=== PATIENT | female | born 1960 | race Caucasian/White ===

== ENCOUNTER 2018-02-04 17:24 | Emergency (ER) | payer OTHER ==
[~2018-02-04] VITALS: Ht 149.9 cm; Wt 41.7 kg
--- NOTE | 2018-02-04 17:49 | PHYS DOC ---
Past Medical History Past Medical History: Diabetes-Type II, Renal Failure Adult General Chief Complaint Chief Complaint: NOSEBLEED HPI HPI Patient is a 58 year old female with history of hypertension, diabetes type 2, end-stage renal disease on home hemodialysis five days ago last dialyzed 2 days ago who presents today complaining of nose bleeding since 10 am. Patient states she typically injects 2000U of heparin post dialysis. Patient denies any trauma. Denies any headache. Review of Systems Review of Systems Constitutional: Denies fever or chills [] Eyes: Denies change in visual acuity, redness, or eye pain [] HENT: Reports nose bleeding. Denies nasal congestion or sore throat [] Respiratory: Denies cough or shortness of breath [] Cardiovascular: No additional information not addressed in HPI [] GI: Denies abdominal pain, nausea, vomiting, bloody stools or diarrhea [] : Denies dysuria or hematuria [] Musculoskeletal: Denies back pain or joint pain [] Integument: Denies rash or skin lesions [] Neurologic: Denies headache, focal weakness or sensory changes [] All other systems were reviewed and found to be within normal limits, except as documented in this note. Current Medications Current Medications Current Medications Medications (Trade) Dose Ordered Sig/Arnel Start Time Stop Time Status Last Admin Dose Admin Oxymetazoline HCl (Afrin) 2 spray 1X ONCE 02/04/18 18:00 02/04/18 18:06 DC 02/04/18 18:22 2 SPRAY Allergies Allergies Allergies Coded Allergies Type Severity Reaction Last Updated Verified ELIZABETH Inhibitors Allergy Mild Unknown 02/04/18 Yes Physical Exam Physical Exam Constitutional: Well developed, well nourished, no acute distress, non-toxic appearance. [] HENT: Normocephalic, atraumatic, bilateral external ears normal, oropharynx moist, no oral exudates, Right nasal cavity with trace amount of bright red blood, this appears to be a posterior nosebleed, left nasal cavity with no active bleeding. Eyes: PERRLA, EOMI, conjunctiva normal, no discharge. [] Neck: Normal range of motion, no tenderness, supple, no stridor. [] Cardiovascular:Heart rate regular rhythm, no murmur [] Lungs & Thorax: Bilateral breath sounds clear to auscultation [] Abdomen: Bowel sounds normal, soft, no tenderness, no masses, no pulsatile masses. [] Skin: Warm, dry, no erythema, no rash. [] Back: No tenderness, no CVA tenderness. [] Extremities: No tenderness, no cyanosis, no clubbing, ROM intact, no edema. [] Neurologic: Alert and oriented X 3, normal motor function, normal sensory function, no focal deficits noted. [] Psychologic: Affect normal, judgement normal, mood normal. [] Current Patient Data Vital Signs Vital Signs Date Time Temp Pulse Resp B/P (MAP) Pulse Ox O2 Delivery O2 Flow Rate FiO2 02/04/18 19:00 93 18 149/72 (97) 94 Room Air 02/04/18 17:44 98.1 98.1 Lab Values Laboratory Tests Test 02/04/18 19:00 White Blood Count 13.8 x10^3/uL (4.0-11.0) H Red Blood Count 2.75 x10^6/uL (3.50-5.40) L Hemoglobin 9.2 g/dL (12.0-15.5) L Hematocrit 27.0 % (36.0-47.0) L Mean Corpuscular Volume 98 fL (79-100) Mean Corpuscular Hemoglobin 34 pg (25-35) Mean Corpuscular Hemoglobin Concent 34 g/dL (31-37) Red Cell Distribution Width 13.4 % (11.5-14.5) Platelet Count 371 x10^3/uL (140-400) Neutrophils (%) (Auto) 73 % (31-73) Lymphocytes (%) (Auto) 17 % (24-48) L Monocytes (%) (Auto) 9 % (0-9) Eosinophils (%) (Auto) 1 % (0-3) Basophils (%) (Auto) 1 % (0-3) Neutrophils # (Auto) 10.1 x10^3uL (1.8-7.7) H Lymphocytes # (Auto) 2.3 x10^3/uL (1.0-4.8) Monocytes # (Auto) 1.3 x10^3/uL (0.0-1.1) H Eosinophils # (Auto) 0.1 x10^3/uL (0.0-0.7) Basophils # (Auto) 0.1 x10^3/uL (0.0-0.2) Prothrombin Time 14.2 SEC (11.7-14.0) H Prothrombin Time INR 1.1 (0.8-1.1) PTT 29 SEC (24-38) Sodium Level 126 mmol/L (136-145) L Potassium Level 4.2 mmol/L (3.5-5.1) Chloride Level 88 mmol/L (98-107) L Carbon Dioxide Level 27 mmol/L (21-32) Anion Gap 11 (6-14) Blood Urea Nitrogen 78 mg/dL (7-20) H Creatinine 3.6 mg/dL (0.6-1.0) H Estimated GFR (Cockcroft-Gault) 13.0 Glucose Level 743 mg/dL (70-99) *H Calcium Level 7.5 mg/dL (8.5-10.1) L Laboratory Tests 02/04/18 19:00 Laboratory Tests 02/04/18 19:00 EKG EKG [] Radiology/Procedures Radiology/Procedures [] Course & Med Decision Making Course & Med Decision Making Pertinent Labs and Imaging studies reviewed. (See chart for details) This is a 58-year-old female patient presenting to the ED today with nose bleeding that began at 10am. Small amount of blood noted in the right nasal cavity. Nose bleeding was stopped with Afrin successfully. CBC with a hemoglobin of 9.2, hematocrit 27.0. BMP with sodium of 126, glucose 743, anion gap is normal, BUN is 78 creatinine 3.2. PT 14.2, INR 1.1, PTT 29. Potassium is normal Results were communicated to patient especially her high blood glucose and low sodium. Patient states she does her own hemodialysis at home 5 days a week and she skipped yesterday hence due today. She states her glucose numbers run at around 1200. She also states she is on prednisone. She states she will not accept to be admitted, she states she will stop somewhere with the , have food and go home use her insulin and do dialysis. She signed out AMA. Risk of leaving AMA given including . Encouraged to return at any point she chooses or symptoms worsen. [place]: Corrected serum sodium 141.4 Dragon Disclaimer Dragon Disclaimer This electronic medical record was generated, in whole or in part, using a voice recognition dictation system. Departure Departure Impression: Primary Impression: Epistaxis Additional Impressions: Hyperglycemia End stage renal disease Left against medical advice Disposition: AGAINST MEDICAL ADVICE Condition: STABLE Referrals: UNKNOWN PCP NAME (PCP) Attending Signature Attending Signature I have reviewed the PA/PASTING INSPECTOR's note and plan of care. I was available for consultation as needed during the patient's visit in the emergency department. I agree with the clinical impression, plan, and disposition. Problem Qualifiers AMARILIS ROSS APRN Feb 04, 2018 17:49 KENNA ATWOOD DO Feb 04, 2018 23:41
[2018-02-04] MEDS ORDERED: OXYMETAZOLINE 0.05% NASAL SPRAY 30ML BOTTLE. NS ONE (18:00)
[2018-02-04 19:00] VITALS: BP 149/72
[2018-02-04 19:14] LABS: BASO # 0.1 x10^3/uL (0.0-0.2); BASO % 1 % (0-3); EOS # 0.1 x10^3/uL (0.0-0.7); EOS % 1 % (0-3); HEMOGLOBIN 9.2 g/dL (12.0-15.5); LYMPH # 2.3 x10^3/uL (1.0-4.8); LYMPH % 17 % (24-48); MEAN CORPUSCULAR HEMOGLOBIN 34 pg (25-35); MEAN CORPUSCULAR HGB CONC 34 g/dL (31-37); MEAN CORPUSCULAR VOLUME 98 fL (79-100); MONO # 1.3 x10^3/uL (0.0-1.1); MONO % 9 % (0-9); NEUT # 10.1 x10^3uL (1.8-7.7); NEUT % 73 % (31-73); PLATELET COUNT 371 x10^3/uL (140-400); RED BLOOD COUNT 2.75 x10^6/uL (3.50-5.40); RED CELL DISTRIBUTION WIDTH 13.4 % (11.5-14.5); WHITE BLOOD COUNT 13.8 x10^3/uL (4.0-11.0)
[2018-02-04 19:23] LABS: PROTHROMBIN TIME PATIENT 14.2 SEC (11.7-14.0)
[2018-02-04 19:33] LABS: CALCIUM 7.5 mg/dL (8.5-10.1); CREATININE 3.6 mg/dL (0.6-1.0); POTASSIUM 4.2 mmol/L (3.5-5.1)
== END 2018-02-04 19:50 | disposition left against medical advice (07) ==
LOC: ER 17:24
DX: R04.0 Epistaxis (principal); E11.22 Type 2 diabetes mellitus with diabetic chronic kidney disease; N18.6 End stage renal disease; E11.65 Type 2 diabetes mellitus with hyperglycemia; Z99.2 Dependence on renal dialysis; Z88.8 Allergy status to other drugs, medicaments and biological substances
CPT/HCPCS: 36415; 80048; 85025; 85610; 85730; 99284